=== PATIENT | female | born 1935 | race Asian ===

== ENCOUNTER 2021-08-08 06:39 | Outpatient (CLI) | payer OTHER | END 2021-08-08 23:59 | disposition home or self-care (01) | LOC: LAB 06:39 | PROVIDERS: ATTEND Ophthalmology | DX: Z01.812 Encounter for preprocedural laboratory examination (principal); Z20.822 Contact with and (suspected) exposure to COVID-19 ==

== ENCOUNTER 2021-08-10 06:13 | Day surgery (SDC) | payer OTHER ==
[2021-08-10] MEDS ORDERED: CYCLOPENTOLATE 1% OPHT DROP 2 ML BOTTLE ONE (06:47)
[2021-08-10] MEDS ORDERED: KETOROLAC 0.5% OPHT DROP 3 ML BOTTLE ONE (06:48)
[2021-08-10] MEDS ORDERED: CIPROFLOXACIN 0.3% OPHT DROP 2.5 ML BOTTLE ONE ×2 (06:49→06:51)
[2021-08-10] MEDS ORDERED: TROPICAMIDE 1% OPHT DROP 3 ML BOTTLE ONE (06:49)
[2021-08-10] MEDS ORDERED: PHENYLEPHRINE 2.5% OPHT DROP 2 ML BOTTLE ONE (06:49)
[2021-08-10] MEDS ORDERED: BALANCED SALT IRRIG SOLN COMB1 500 ML, EPINEPHRINE-PF 1:1000 0.5 MG IO ONE ×2 (07:00)
[2021-08-10 07:45] LABS: HEMATOCRIT 35.4 % (31.2-41.9); MEAN CORPUSCULAR HEMOGLOBIN 33.8 uug (24.7-32.8); MEAN CORPUSCULAR VOLUME 103.4 fL (75.5-95.3); PLATELET COUNT (AUTO) 167 K/uL (179-408)
[2021-08-10] MEDS ORDERED: FENTANYL CITRATE 100 MCG/2 ML AMPUL ONE (07:46)
[2021-08-10 08:00] LABS: CREATININE 1.2 mg/dL (0.6-1.3); POTASSIUM 5.2 mmol/L (3.5-5.1)
[2021-08-10] MEDS ORDERED: MOXIFLOXACIN HCL 3 ML OPHT DROPS ONE (08:00)
[2021-08-10] MEDS ORDERED: LIDOCAINE-MPF 2% 5 ML VIAL ONE (08:00)
[2021-08-10] MEDS ORDERED: NEO/POLYMYX B/DEXAME OPHT OINT 3.5 GM TUBE ONE (08:01)
[2021-08-10] MEDS ORDERED: BALANCED SALT IRRIG SOLN COMB1 500 ML ONE (08:01)
[2021-08-10] MEDS ORDERED: TIMOLOL MALEATE 0.5% OPHT DROP 5 ML BOTTLE ONE (08:01)
[2021-08-10] MEDS ORDERED: BALANCED SALT IRRIG SOLN COMB2 15 ML IRRIG.SOLN ONE (08:01)
[2021-08-10] MEDS ORDERED: ACETYLCHOLINE CHLORIDE 1% OPHT 1 EA KIT ONE (08:01)
[2021-08-10] MEDS ORDERED: BUPIVACAINE PF 0.5% 30 ML VIAL ONE (08:01)
[2021-08-10] MEDS ORDERED: HYALURONATE SODIUM 12.8 MG/0.8 ML DISP.SYRIN ONE (08:02)
[2021-08-10] MEDS ORDERED: HYALURONIDASE,OVINE 200 UNITS/ML VIAL ONE (08:02)
[2021-08-10] MEDS ORDERED: TRYPAN BLUE 0.5 ML DISP.SYRIN ONE (08:22)
== END 2021-08-10 10:25 | disposition home or self-care (01) ==
LOC: DS 06:13
PROVIDERS: ATTEND Ophthalmology
DX: H25.89 Other age-related cataract (principal); D64.9 Anemia, unspecified; I12.9 Hypertensive chronic kidney disease with stage 1 through stage 4 chronic kidney disease, or unspecified chronic kidney disease; N18.9 Chronic kidney disease, unspecified; K21.9 Gastro-esophageal reflux disease without esophagitis; M81.0 Age-related osteoporosis without current pathological fracture; M19.90 Unspecified osteoarthritis, unspecified site; F41.9 Anxiety disorder, unspecified; Z79.899 Other long term (current) drug therapy; Z98.890 Other specified postprocedural states
CPT/HCPCS: 36415; 85025; 93005; A4663; J0171; J3010; J3471; J3490; J7120; J7321; Q9968; V2632